=== PATIENT | male | born 1970 | race Caucasian/White ===

== ENCOUNTER 2020-08-25 07:52 | Outpatient (CLI) | payer OTHER, SELFPAY ==
--- NOTE | 2020-08-26 09:34 | WPDPFTINT ---
PFT Interpretation This PFT met all criteria for ATS standards and reproducibility FEV/FVC post bronchodilator 75% FEV1 70% FVC 75% TLC 90% RV 90% RV/TLC 30% DLCO 78% when adjusted for alveolar volume but not adjusted for hemoglobin Flow volume loops were normal Impression: This pulmonary function test is normal except for a mildly decreased diffusion capacity which may be within the margin of error or normal variant. Clinical correlation is advised.
--- NOTE | 2020-08-26 09:38 | WPDSIXMINUTE ---
Six Minute Walk Six Minute Walk: The patients O2 sats started at 97% and dropped as low as 94% Total walk distance 274.32 meters. Dyspnea scale not reported. conclusion: This patient does not qualify for home oxygen therapy.
== END 2020-08-25 07:53 | disposition home or self-care (01) ==
PROVIDERS: PCP Nurse Practitioner Adult Health; Visit Provider Nurse Practitioner Adult Health
DX: R06.00 Dyspnea, unspecified (principal)
CPT/HCPCS: 94375; 94618; 94726; 94729

== ENCOUNTER 2020-08-30 07:34 | Outpatient (CLI) | payer OTHER, SELFPAY ==
--- NOTE | 2020-08-30 | ECHO_ITS ---
Patient Info Name: Jameel Mcclain Age: 49 years : 1970 Gender: Male Ht: 67 in Wt: 360 lbs BSA: 2.88 m2 HR: 80 bpm BP: 147 / 98 mmHg Heart Rhythm: Sinus Rhythm Technical Quality: Poor Exam Date: 08/30/2020 8:08 AM Exam Location: [facility] Pulmonary Patient Status: Outpatient Admit Date: 08/30/2020 Staff Ordering Physician: ConstantineSaida NP Trade Show Specialist: Laurel Mari RDCS Attending Provider: MarkSaida NP Exam Type: CA echo doppler color flow Study Info Indications R06.00 - Dyspnea, unspecified Complete two-dimensional, color flow and Doppler transthoracic echocardiogram is performed. Reason for Poor Study: patient body habitus Summary 1. Complete two-dimensional, color flow and Doppler transthoracic echocardiogram is performed. 2. Technically difficult exam because of obesity. 3. Grossly normal left ventricular systolic function and grade 1 diastolic noncompliance. 4. Enlarged left atrium. Left Ventricular Outflow Tract Name Value Normal LVOT 2D LVOT Diameter 2.0 cm LVOT Doppler LVOT Peak Gradient 6 mmHg LVOT Mean Gradient 3 mmHg LVOT VTI 20 cm LVOT VTI/AV VTI Ratio 0.9 LVOT Stroke Volume 63 ml LVOT CO 5.4 l/min LVOT CI 1.9 l/min/m2 Pulmonic Valve Name Value Normal RVOT Doppler RVOT Peak Gradient 3 mmHg PV Doppler PV Peak Gradient 6 mmHg Mitral Valve Name Value Normal MV Doppler MV Decel [place] 500 cm/s2 MV PHT 38 ms MV Area (PHT) 5.8 cm2 4.0-5.0 MV Diastolic Function MV E Peak Velocity 65 cm/s MV A Peak Velocity 88 cm/s MV E/A 0.7 MV Decel Time 131 ms Tricuspid Valve Name Value Normal TV Regurgitation Doppler TR Peak Velocity 237 cm/s TR Peak Gradient 23 mmHg Estimated PAP/RSVP --
== END 2020-08-30 07:35 | disposition home or self-care (01) ==
PROVIDERS: PCP Nurse Practitioner Adult Health; Visit Provider Nurse Practitioner Adult Health
DX: R06.00 Dyspnea, unspecified (principal)
CPT/HCPCS: 93306

== ENCOUNTER → 2021-04-01 12:21 | Outpatient (CLI) | payer OTHER, SELFPAY ==
--- NOTE | ~2021-04-01 | MR_ITS ---
EXAMINATION: MR thoracic spine wo con EXAM DATE: 04/01/2021 13:38 INDICATION: Thoracic spine pain . TECHNIQUE: Multi-sequential, multiplanar MR images of the thoracic spine were obtained without contra st. Sagittal T1, T2, T2 fat saturation, axial T2 weighted images reviewed. There is no prior study for comparison. FINDINGS: Mild mid and lower thoracic disc disease, with some loss of disc height, small Schmorl's no lisbet and small protrusions. The thoracic central canal is widely patent. There is no more than mild ne ural foraminal stenosis at some midthoracic levels. Vertebral body heights are maintained. There are no focal marrow signal abnormalities suspicious for malignancy or acute fracture. Small mid and lower thoracic endplate osteophytes. No scoliosis suspected. Mild diffuse thoracic facet arthropathy. The spinal cord signal intensity and intrinsic morphology is normal. Paraspinal soft tissue is unremarkab le. IMPRESSION: Mild thoracic spondylosis without significant stenosis. Reviewed, dictated and finalized at location A.
--- NOTE | ~2021-04-01 | MR_ITS ---
EXAMINATION: MR cervical spine wo con EXAM DATE: 04/01/2021 13:37 INDICATION: Radiculopathy, cervical region radiculopathy . Bilateral arm tingling and numbness. TECHNIQUE: Multi-sequential, multiplanar MR images of the cervical spine were obtained without contra st. Axial T2, axial T2 MERGE sequence. Sagittal T1, T2, T2 fat saturation images also obtained. Th ere are no prior studies for comparison. FINDINGS: There is mild to moderate disc disease at C5-6, mild at 4-5. The spinal cord signal intens ity and intrinsic morphology is normal. Cervicomedullary junction is normal in appearance. The verteb ral bodies are aligned in the AP dimension. There are no suspicious marrow signal abnormalities. P araspinal soft tissue is unremarkable. Level by level evaluation: C2-C3: Disc does not extend beyond the endplate margin. Uncovertebral joint arthropathy: Mild left. Facet joint arthropathy: Mild bilateral. Neural foraminal stenosis: No stenosis. Central canal stenosis: No stenosis. C3-C4: Disc does not extend beyond the endplate margin. Uncovertebral joint arthropathy: Mild bilateral. Facet joint arthropathy: Mild bilateral. Neural foraminal stenosis: Mild right. Central canal stenosis: No stenosis. C4-C5: There is a mild diffuse disc bulge. Uncovertebral joint arthropathy: Mild bilateral. Facet joint arthropathy: Mild bilateral. Neural foraminal stenosis: Minimal bilateral. Central canal stenosis: Mild. C5-C6: There is a mild to moderate diffuse disc bulge. Uncovertebral joint arthropathy: Moderate. Facet joint arthropathy: Mild. Neural foraminal stenosis: Moderate to severe. Central canal stenosis: Mild . Central canal measures 7 mm in mid sagittal AP diameter . C6-C7: Disc does not extend beyond the endplate margin. Uncovertebral joint arthropathy: Mild to moderate bilateral. Facet joint arthropathy: Mild bilateral. Neural foraminal stenosis: No stenosis. Central canal stenosis: No stenosis. C7-T1: Disc does not extend beyond the endplate margin. Uncovertebral joint arthropathy: Mild to moderate right, mild left. Facet joint arthropathy: Mild bilateral. Neural foraminal stenosis: No stenosis. Central canal stenosis: No stenosis. IMPRESSION: 1. C5-6 moderate to severe bilateral neural foraminal stenosis from disc bulge and/or arthropathy. 2. Otherwise relatively mild cervical spondylosis. Reviewed, dictated and finalized at location A.
--- NOTE | ~2021-04-01 | MR_ITS ---
EXAMINATION: MR lumbar spine wo con DATE: 04/01/2021 13:41 INDICATION: Lumbar radiculopathy. TECHNIQUE: Magnetic resonance imaging (MRI) of the lumbar spine was performed without intravenous con trast. Sequences included sagittal T2-weighted FSE, sagittal T2-weighted FS FSE, sagittal T1-weighted FSE, and axial T2-weighted FSE. COMPARISON: None FINDINGS: Bone alignment is normal. There are Schmorl's nodes at multiple levels. There is mild chron ic height loss of T11 vertebral body. Intervertebral disc heights are normal. The distal spinal cord signal intensity is normal. The conus medullaris is at L1-L2. The following disc levels are specifica lly discussed: L1-L2: The disc does not extend beyond the endplate margin. There is mild bilateral facet joint osteo arthritis. There is no neural foraminal stenosis. There is no central canal stenosis. L2-L3: The disc is bulging as an annular fissure. There is mild bilateral facet joint osteoarthritis. There is mild bilateral neural foraminal stenosis. There is mild central canal stenosis. L3-L4: The disc is mildly bulging. There is mild bilateral facet joint osteoarthritis. There is mild bilateral neural foraminal stenosis. There is no central canal stenosis. L4-L5: The disc is mildly bulging. There is severe bilateral facet joint osteoarthritis. There is mil d bilateral neural foraminal stenosis. There is no central canal stenosis. L5-S1: The disc does not extend beyond the endplate margin. There is moderate bilateral facet joint o steoarthritis. There is mild bilateral neural foraminal stenosis. There is no central canal stenosis. IMPRESSION: 1. Mild lumbar spondylosis. Reviewed, dictated and finalized at location A. IMPRESSION: 1. Mild lumbar spondylosis.
== END ==
PROVIDERS: PCP Nurse Practitioner Adult Health; Visit Provider Nurse Practitioner Family
DX: M47.894 Other spondylosis, thoracic region (principal); M47.22 Other spondylosis with radiculopathy, cervical region; M47.26 Other spondylosis with radiculopathy, lumbar region
CPT/HCPCS: 72141; 72146; 72148

== ENCOUNTER 2021-05-10 01:33 | Day surgery (SDC) | payer OTHER, SELFPAY ==
[2021-04-21 14:50] VITALS: BMI 50.4
--- NOTE | 2021-05-10 08:11 | WPDANESEPPF ---
Anes - Initial Pre Proc Eval Procedure: Operation Date: 05/10/21 10:15 Proposed Procedures p Screening Colonoscopy - Miguel Cazares MD Date/Time: 05/10/21 08:11 Surgeon: Miguel Cazares MD Pre Op Diagnosis: neoplasm screening Patient Data Age: 50 Gender: M Height: 1.7 m Weight: 146 kg Allergies Allergy/AdvReac Type Severity Reaction Status Date / Time No Known Allergies Allergy Verified 05/10/21 09:10 Home Medications Medication Instructions Recorded Confirmed Type albuterol sulfate 1 puff INHALATION PRN PRN 04/21/21 05/10/21 History fenofibrate 160 mg PO DAILY 04/21/21 04/21/21 History gabapentin 300 mg PO TID 04/21/21 04/21/21 History montelukast 10 mg PO DAILY 04/21/21 04/21/21 History phentermine 37.5 mg PO DAILY 04/21/21 04/21/21 History ropinirole 0.25 mg PO DAILY 04/21/21 04/21/21 History trazodone 150 mg PO HS 04/21/21 04/21/21 History Patient hx anesthesia problems: none Family hx anesthesia problems: none Results Review: All pre-operative results and documents have been reviewed as part of the pre-operative evaluation. [facility] Past Medical History Medical History (Updated 05/10/21 @ 08:11 by Jessee Lares DO) Asthma PRIMITIVO (obstructive sleep apnea) Surgical History Surgical History (Updated 05/10/21 @ 08:11 by Jessee Lares DO) History of sleeve gastrectomy Social History Social History Alcohol intake: current Drinks per week: 3 Living arrangements: with family Spiritual care concerns: No Anes - Eval Final PreProcedure Day of Procedure 05/10/21 08:11 Patient weight: super morbidly obese Heart: regular rate and rhythm Lungs: clear to auscultation and normal air movement Airway: Mallampati scale class III Neurological: alert and oriented Last oral intake: >/= 8 hours ASA classification: III Emergent: no Anesthetic plan: proceed Anesthesia type and monitoring: general GIVS and standard monitoring Results Review: All pre-operative results and documents have been reviewed as part of the pre-operative evaluation. Informed Consent: The patient's anesthetic plan and its attendant risks and benefits were discussed with the patient/family/POA. Questions were solicited and answers provided to the satisfaction of the patient/family/POA.
[2021-05-10 09:13] VITALS: BP 166/91; PULSE 80; RESP 18; TEMP 36.4; O2SAT 100; BMI 51.5
[2021-05-10] MEDS: LACTATED RINGERS 1,000 ML 150 ML IV CONT (09:28)
--- NOTE | 2021-05-10 10:12 | PM.HPGS ---
History of Present Illness History of Present Illness Consent: Risks, benefits, and alternatives have been discussed and questions answered. Patient agrees to proceed with procedure. Chief complaint: neoplasm screening Narrative: Josh Mcclain is a 50 year old male here for first screening colonoscopy Review of Systems Constitutional: Constitutional: Denies headache(s) and Denies weakness Eyes: Eyes: Denies blurry vision ENT: Reports Normal hearing present, Denies headache(s) and Denies neck pain Cardiovascular: Cardiovascular: Denies chest pain and Denies dyspnea Respiratory: Respiratory: Denies dyspnea Gastrointestinal: Gastrointestinal: Reports no additional gastrointestinal complaints Genitourinary: Genitourinary: Denies dysuria Musculoskeletal: Musculoskeletal: Denies neck pain Integumentary/Breasts: Skin/Breast: Denies dry skin Neurologic: Reports Normal hearing present, Denies headache(s) and Denies weakness Psychiatric: Psychiatric: Denies anxiety Endocrine: Endocrine: Denies change in body appearance Hematologic/Lymphatic: Hematologic/Lymphatic: Denies easy bleeding Allergic/Immunologic: Allergic/Immunologic: Denies urticaria PMF Past Medical History Medical History (Updated 05/10/21 @ 10:12 by Miguel Cazares MD) Asthma Colon cancer screening PRIMITIVO (obstructive sleep apnea) Surgical History Surgical History (Updated 05/10/21 @ 08:11 by Jessee Lares DO) History of sleeve gastrectomy Social History Social History Alcohol intake: current Drinks per week: 3 Living arrangements: with family Spiritual care concerns: No Meds Home Medications and Allergies Home Medications Medication Instructions Recorded Confirmed Type albuterol sulfate 1 puff INHALATION PRN PRN 04/21/21 05/10/21 History fenofibrate 160 mg PO DAILY 04/21/21 04/21/21 History gabapentin 300 mg PO TID 04/21/21 04/21/21 History montelukast 10 mg PO DAILY 04/21/21 04/21/21 History phentermine 37.5 mg PO DAILY 04/21/21 04/21/21 History ropinirole 0.25 mg PO DAILY 04/21/21 04/21/21 History trazodone 150 mg PO HS 04/21/21 04/21/21 History Allergies Allergy/AdvReac Type Severity Reaction Status Date / Time No Known Allergies Allergy Verified 05/10/21 09:10 Vital Signs Vital Signs - 24 hr 05/10/21 09:13 Temperature 97.6 F Pulse Rate 80 Respiratory Rate 18 Blood Pressure 166/91 H Pulse Oximetry 100 Exam Const: General: comfortable and no acute distress HENMT: General nose exam: Normal nares present Eyes: General: appearance normal, both eyes and all related structures Neck: Neck: no JVD Resp: Auscultation: clear to auscultation bilaterally Cardio: Rate: regular rate Rhythm: regular rhythm GI: Inspection: non-distended GI Palp: Yes Soft to palpation Skin: General skin exam: normal color Neuro: General: gait normal Speech: normal speech Extrem: General: normal to inspection Psych: Mental Status: mental status grossly normal Assessment and Plan Assessment and plan (1) Colon cancer screening: Code(s): Z12.11 - Encounter for screening for malignant neoplasm of colon Status: Acute Assessment and Plan: colonoscopy
[2021-05-10 10:30] VITALS: BP 152/91; PULSE 71; RESP 20; O2SAT 100
[2021-05-10 10:40] VITALS: BP 133/83; PULSE 64; RESP 22; O2SAT 100
== END 2021-05-10 11:00 | disposition home or self-care (01) ==
PROVIDERS: PCP Nurse Practitioner Adult Health; Visit Provider Internal Medicine Gastroenterology
PROC: 0DJD8ZZ Inspection of Lower Intestinal Tract, Via Natural or Artificial Opening Endoscopic (ICD-10-PCS; CPT 45378; principal; 2021-05-10 10:15)
DX: Z12.11 Encounter for screening for malignant neoplasm of colon (principal); D12.2 Benign neoplasm of ascending colon; K63.5 Polyp of colon; K64.8 Other hemorrhoids; J45.909 Unspecified asthma, uncomplicated; G47.33 Obstructive sleep apnea (adult) (pediatric); Z79.51 Long term (current) use of inhaled steroids; Z98.84 Bariatric surgery status; E66.01 Morbid (severe) obesity due to excess calories; Z68.43 Body mass index [BMI] 50.0-59.9, adult
CPT/HCPCS: 45385; 88305; J2704; J7120

== ENCOUNTER 2024-04-20 09:42 | Outpatient (CLI) | payer OTHER, SELFPAY ==
--- NOTE | ~2024-04-20 | MR_ITS ---
MRI of the lumbar spine Clinical History: Back pain, right radiculopathy Technique: Axial T2-weighted images, and sagittal T1-weighted, T2-weighted, and T2 fat-sat images wer e acquired. Findings: There is no acute fracture or subluxation of the lumbar spine. Vertebral bodies maintain no rmal height and alignment. No suspicious bone marrow signal abnormality seen. At L1-L2, there is no disc bulge or herniation. There is moderate facet arthropathy. No central canal stenosis or left neural foraminal narrowing. There is mild right neural foraminal narrowing. At L2-L3, there is mild disc bulge with small annular fissure. There is moderate facet arthropathy. T here is mild central canal stenosis. There is moderate bilateral neural foraminal narrowing, left wor se than right. At L3-L4, there is diffuse disc bulge with advanced facet arthropathy. No kofi central canal stenosi s. There is moderate to advanced bilateral neural foraminal narrowing. At L4-L5, there is diffuse disc bulge with severe facet arthropathy. No kofi central canal stenosis. There is advanced right neural foraminal narrowing, and moderate left neural foraminal narrowing. At L5-S1, there is no disc bulge or herniation. There is advanced facet arthropathy. No central canal stenosis or definite neural foraminal narrowing. Paravertebral soft tissues are unremarkable. Impression: Moderate to advanced degenerative spondylosis, as detailed above. Reviewed, dictated and finalized at [facility]. [employer] Impression: Moderate to advanced degenerative spondylosis, as detailed above.
== END 2024-04-20 09:43 | disposition home or self-care (01) ==
PROVIDERS: PCP Nurse Practitioner Family; Visit Provider Nurse Practitioner Family
DX: M47.26 Other spondylosis with radiculopathy, lumbar region (principal)
CPT/HCPCS: 72148